=== PATIENT | male | born 1960 | race African-American/Black ===

== ENCOUNTER 2019-11-24 13:26 | Emergency (ER) | payer MEDICAID ==
[~2019-11-24] VITALS: Ht 172.7 cm; Wt 64.0 kg
[2019-11-24] MEDS ORDERED: HALOPERIDOL LACTATE 5MG/ML VIAL IM STA (13:34)
[2019-11-24] MEDS ORDERED: OLANZAPINE 10 MG/VIAL IM STA (13:34)
[2019-11-24 16:21] LABS: BASOPHILS % 0.2 % (0.0-2.0); EOSINOPHILS % 0.3 % (0.0-5.0); HEMATOCRIT. 42.8 % (42.0-52.0); HEMOGLOBIN. 14.7 g/dL (14.0-18.0); MEAN CORPUSCULAR HEMOGLOBIN 30.7 pg (28.0-32.0); MEAN CORPUSCULAR VOLUME 89.7 fL (80.0-94.0); MEAN PLATELET VOLUME 8.6 fl (7.4-10.4); MONOCYTES % 6.1 % (2.0-8.0); NEUTROPHILS % 80.4 % (40.0-76.0); PLATELET 202 x1000/uL (130-400); RED BLOOD CELL COUNT 4.77 mill/uL (4.7-6.1)
[2019-11-24 16:28] LABS: CHLORIDE 110 mEq/L (98-107)
[2019-11-24 16:32] LABS: ETHANOL BLOOD < 10 mg/dL
[2019-11-25 09:01] LABS: CLARITY URINE CLEAR (CLEAR); COLOR URINE YELLOW (YELLOW); KETONES URINE 1+ (NEGATIVE); LEUKOCYTE ESTERASE URINE NEGATIVE (NEGATIVE); NITRITE URINE NEGATIVE (NEGATIVE); OCCULT BLOOD URINE NEGATIVE (NEGATIVE); PH URINE 6.5 (4.5-8.0); PROTEIN URINE 1+ (NEGATIVE); SPECIFIC GRAVITY URINE 1.019 (1.005-1.030)
[2019-11-25 09:15] LABS: *AMPHETAMINES SCREEN URINE PRESUMTIVE POSITIVE (NEGATIVE); *BARBITURATES SCREEN URINE NEGATIVE (NEGATIVE); *BENZODIAZEPINES SCREEN URINE NEGATIVE (NEGATIVE); *COCAINE SCREEN URINE NEGATIVE (NEGATIVE); CANNABINOID URINE SCREEN NEGATIVE (NEGATIVE); METHADONE URINE SCREEN NEGATIVE (NEGATIVE); OPIATES URINE SCREEN NEGATIVE (NEGATIVE)
[2019-11-25 09:16] LABS: PHENCYCLIDINE URINE SCREEN NEGATIVE (NEGATIVE)
[2019-11-25 17:35] VITALS: BP 110/68
== END 2019-11-25 19:22 | disposition left against medical advice (07) ==
LOC: ER 14:00
DX: S05.32XA Ocular laceration without prolapse or loss of intraocular tissue, left eye, initial encounter (principal); F23 Brief psychotic disorder; F31.9 Bipolar disorder, unspecified; F20.9 Schizophrenia, unspecified; F15.10 Other stimulant abuse, uncomplicated; Z87.438 Personal history of other diseases of male genital organs; X58.XXXA Exposure to other specified factors, initial encounter; Y93.89 Activity, other specified; Y92.89 Other specified places as the place of occurrence of the external cause; Y99.8 Other external cause status
CPT/HCPCS: 36415; 80053; 80305; 80320; 81003; 82962; 84484; 85025; 96372; 99284; J1630; J3490; Z7610; G0480

== ENCOUNTER 2024-06-27 13:56 | Emergency (ER) | payer BC, MEDICAID ==
[~2024-06-27] VITALS: Ht 170.2 cm; Wt 64.0 kg
[2024-06-27 13:59] VITALS: O2SAT 99
[2024-06-27] MEDS: ONDANSETRON HCL 4MG/2ML INJ IV STA (14:38)
[2024-06-27 15:11] LABS: CARBON DIOXIDE 19 mEq/L (21-32); CHLORIDE 112 mEq/L (98-107); POTASSIUM 3.7 mEq/L (3.5-5.1); SODIUM 141 mEq/L (136-145)
[2024-06-27 15:12] LABS: CALCIUM 10.5 mg/dL (8.7-10.4)
[2024-06-27 15:17] LABS: CREATININE 1.1 mg/dL (0.6-1.3); GLUCOSE 106 mg/dL (70-105); UREA NITROGEN BLOOD 10 mg/dL (9-23)
[2024-06-27 15:18] LABS: TROPONIN I HIGH SENSITIVITY 15 ng/L (3.0-53)
[2024-06-27 15:19] LABS: ACETAMINOPHEN 10 ug/mL (10-30)
[2024-06-27 15:27] LABS: ETHANOL BLOOD < 10 mg/dL (<10)
[2024-06-27 16:12] LABS: BASOPHILS % 0.1 % (0.0-2.0); HEMATOCRIT. 47.3 % (42.0-52.0); HEMOGLOBIN. 15.4 g/dL (14.0-18.0); LYMPHOCYTES % 10.2 % (20.0-50.0); MEAN CORPUSCULAR HEMOGLOBIN 30.9 pg (28.0-32.0); MEAN CORPUSCULAR HGB CONC 32.5 g/dL (31.0-37.0); MEAN CORPUSCULAR VOLUME 94.9 fL (80.0-94.0); MEAN PLATELET VOLUME 9.2 fl (7.4-10.4); MONOCYTES % 7.1 % (2.0-8.0); NEUTROPHILS % 82.6 % (40.0-76.0); PLATELET 185 x1000/uL (130-400); RED BLOOD CELL COUNT 4.98 mill/uL (4.7-6.1); RED CELL DISTRIBUTION WIDTH 13.8 % (11.6-14.6); WHITE BLOOD COUNT 10.4 x1000/uL (4.5-11.0)
[2024-06-27 16:45] LABS: TROPONIN I HIGH SENSITIVITY 14 ng/L (3.0-53)
[2024-06-27 17:05] VITALS: BP 116/77; PULSE 85; RESP 16; TEMP 98.8
== END 2024-06-27 18:24 | disposition home or self-care (01) ==
LOC: ER 13:56
DX: T40.711A Poisoning by cannabis, accidental (unintentional), initial encounter (principal); F12.10 Cannabis abuse, uncomplicated; F15.10 Other stimulant abuse, uncomplicated; X58.XXXA Exposure to other specified factors, initial encounter
CPT/HCPCS: 80048; 80307; 80329; 80320; 85025; 84484; 36415; 96374; 99283; J2405; G0480